=== PATIENT | male | born 1945 | race Caucasian/White ===

== ENCOUNTER 2017-09-24 15:05 | Emergency (ER) | payer SELFPAY ==
[2017-09-24 15:19] VITALS: BP 165/67; PULSE 56; RESP 20; TEMP 97.9; O2SAT 95
[2017-09-24] MEDS ORDERED: [UNRECOGNIZED DRUG - OTHER] (15:32)
--- NOTE | 2017-09-24 15:39 | PD ---
HPI Chief Complaint: Injury Time Seen by Provider: 15:28 Travel History International Travel<30 days: No Contact w/Intl Traveler<30days: No Traveled to known affect area: No History of Present Illness HPI 72-year-old male presents to the emergency department for evaluation after a slip and fall that occurred just prior to arrival. Patient states that he slipped and fell at [facility] just prior to arrival. He hit his right knee and has a laceration to the right anterior knee. Patient is not sure if he hit his head, but is unsure if he had a brief moment of LOC and believes that he may have hit his head. Patient denies neck pain or back pain. No chest pain or abdominal pain. No vomiting. He currently rates his pain 0/10. He has been able to ambulate since the fall. He is unsure when his last tetanus immunization was, believes it was longer than 5 years ago. Patient is on Plavix. No exacerbating or alleviating factors. Moderate severity. PFSH Social History Alcohol Use: No Tobacco Use: No Substance Use: No Allergies-Medications (Allergen,Severity, Reaction): Coded Allergies: No Known Allergies (Unverified , 09/24/17) Reported Meds & Prescriptions Reported Meds & Active Scripts Active Reported [17 medication] Review of Systems Except as stated in HPI: all other systems reviewed are Neg Physical Exam Narrative GENERAL: Well-nourished, well-developed elderly male patient, afebrile. SKIN: Focused skin assessment warm/dry. Patient has a 6 cm laceration to the right anterior knee. I am able to visualize the base of the wound. HEAD: Normocephalic. Atraumatic. EYES: No scleral icterus. No injection or drainage. NECK: Supple, trachea midline. No JVD or lymphadenopathy. CARDIOVASCULAR: Regular rate and rhythm without murmurs, gallops, or rubs. RESPIRATORY: Breath sounds equal bilaterally. No accessory muscle use. Lung sounds are clear to auscultation. GASTROINTESTINAL: Abdomen soft, non-tender, nondistended. MUSCULOSKELETAL: No cyanosis, or edema. No bony point tenderness of right knee. He is full flexion-extension. BACK: Nontender without obvious deformity. No CVA tenderness. No bony point tenderness. He has full rotation of the cervical spine without pain or stiffness. Data Data Last Documented VS Vital Signs Date Time Temp Pulse Resp B/P (MAP) Pulse Ox O2 Delivery O2 Flow Rate FiO2 09/24/17 15:19 97.9 56 20 165/67 (99) [address] Brain W/O Iv Contrast(Rout) (09/24/17 ) Knee, Complete (4vws) (09/24/17 ) Tetanus/Diphtheria Tox Adult (Tetanus/Di (09/24/17 15:45) Lidocai-Epi 1%-1:100,000 Inj (Xylocaine- (09/24/17 15:45) MDM Medical Decision Making Medical Screen Exam Complete: Yes Emergency Medical Condition: Yes Medical Record Reviewed: Yes Interpretation(s) Last Impressions Knee X-Ray 09/24/17 0000 Signed Impressions: CONCLUSION: 1. No acute fracture or joint dislocation. 2. Bipartite patella 3. Prominent PVD Head CT 09/24/17 0000 Signed Impressions: CONCLUSION: 1. No acute intracranial abnormalities seen. 2. Mild soft tissue swelling in the left frontal region. Differential Diagnosis Closed head injury versus intracranial hemorrhage versus laceration versus open fracture versus knee contusion versus the fracture Narrative Course 72-year-old male presents to the emergency department for evaluation after a slip and fall. He is on Plavix and is not sure if he hit his head. Therefore, CT of the brain will be completed to rule out any intracranial hemorrhage. X- ray of the right knee is ordered and pending. Patient gives verbal consent for laceration repair. He states that he is currently on antibiotics for a wound to his toe. He is trying to remember the name of the antibiotic at this time. CT of the brain shows no acute intracranial abnormality. x-ray of the right knee shows no acute fracture or dislocation. Laceration was repaired. Patient is on antibiotic, but is not sure which one. He will be discharged a prescription for Keflex. He is instructed to not take this if he is already on it. He verbalizes agreement. He is instructed on proper wound care. The patient was discharged in stable condition with instructions, including return instructions and follow up instructions. Procedures Procedure Narrative LACERATION LOCATION: Right anterior knee LENGTH: 6 cm NUMBER OF STITCHES/BILL: 1 horizontal mattress suture, 5 simple interrupted sutures REPAIR: The area of the laceration was prepped with Betadine and sterilely draped. The laceration was infiltrated with 1% lidocaine with epinephrine. The wound was copiously irrigated and explored without evidence of foreign body, tendon injury or neurovascular injury. The wound was closed using 3-0 Prolene. This was a single layer repair. A sterile dressing was applied. The patient was advised to keep the dressing clean and dry. Patient tolerated the procedure well. Diagnosis Primary Impression: Laceration of right knee Qualified Codes: S81.011A - Laceration without foreign body, right knee, initial encounter Additional Impression: Closed head injury Qualified Codes: S09.90XA - Unspecified injury of head, initial encounter Referrals: Primary Care Physician call for appointment Patient Instructions: Care For Your Stitches (ED), General Instructions, Laceration (ED) Additional Instructions: Take antibiotic as directed until gone. If you are already on this antibiotic, do not take my prescription, but continue the prescription you are on. Otherwise, continue your current antibiotic and your new prescription. Clean laceration twice daily with soap and water and apply [id number] antibiotic ointment. Keep clean and dry. No swimming or hot tubs until healed. Suture removal in 10-14 days. You may follow-up with your primary care physician return to the emergency department for this. Return to the emergency department for any acute abnormalities. Med/Other Pt SpecificInfo: Prescription(s) given Scripts Cephalexin (Keflex) 500 Mg Capsule 500 MG PO Q8H for Infection for 10 Days, #30 CAP 0 Refills Prov: Mily Richmond 09/24/17 Disposition: 01 DISCHARGE HOME Condition: Stable Mily Richmond September 24, 2017 15:39
[2017-09-24] MEDS ORDERED: LIDOCAINE 1%/EPINEPHrine 1:100,000 SOLN 20 ML VIAL INFIL ONE (15:45)
[2017-09-24] MEDS ORDERED: TETANUS/DIPHTHERIA TOXOID ADULT 0.5 ML VIAL IM ONE (15:45)
--- NOTE | 2017-09-24 16:35 | RADRPT ---
EXAM DATE: 09/24/2017 4:24 PM EDT AGE/SEX: 72 years / Male INDICATIONS: Right anterior knee laceration and pain. Patient fell today. CLINICAL DATA: This is the patient's initial encounter. Patient reports that signs and symptoms have been present for 1 day and indicates a pain score of 6/10. MEDICAL/SURGICAL HISTORY: None. None. COMPARISON: No prior [facility] exams available for comparison. FINDINGS: Bony structures are intact and in normal alignment. Joints are intact without dislocation or signifi cant arthropathy. 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 Osseous density is normal. No joint effus ion is demonstrated. There is prominent vascular calcifications in the soft tissues characteristic fo r PVD. There are surgical clips in the soft tissues.. CONCLUSION: 1. No acute fracture or joint dislocation. 2. Bipartite patella 3. Prominent PVD Electronically signed by: Chilango Holder MD 09/24/2017 4:34 PM EDT
--- NOTE | 2017-09-24 17:21 | RADRPT ---
EXAM DATE: 09/24/2017 5:18 PM EDT AGE/SEX: 72 years / Male INDICATIONS: Fall today CLINICAL DATA: This is the patient's initial encounter. Patient reports that signs and symptoms have been present for 1 day and indicates a pain score of 6/10. MEDICAL/SURGICAL HISTORY: None. None. RADIATION DOSE: 46.39 CTDI (mGy) COMPARISON: No prior [facility] exams available for comparison. TECHNIQUE: CT of the head without contrast. Using automated exposure control and adjustment of the mA and/or kV according to patient size, radiation dose was kept as low as reasonably achievable to ob tain optimal diagnostic quality images. FINDINGS: Cerebrum: The ventricles are normal for age. No evidence of midline shift, mass lesion, hemorrhage or acute infarction. No extraaxial fluid collections are seen. Posterior Fossa: The cerebellum and brainstem are intact. The 4th ventricle is midline. The cerebe llopontine angle is unremarkable. Extracranial: The visualized portion of the orbits is intact. There appears to be mild soft tissue s welling in the left frontal scalp region. Skull: The calvaria is intact. No evidence of skull fracture. CONCLUSION: 1. No acute intracranial abnormalities seen. 2. Mild soft tissue swelling in the left frontal region. Electronically signed by: Dameon Matthew MD 09/24/2017 5:20 PM EDT
[2017-09-24] MEDS ORDERED: CEPH-460 PO (17:45)
== END 2017-09-24 18:05 | disposition home or self-care (01) ==
LOC: NEPK 15:05
DX: S81.011A Laceration without foreign body, right knee, initial encounter (principal); S09.90XA Unspecified injury of head, initial encounter; W01.0XXA Fall on same level from slipping, tripping and stumbling without subsequent striking against object, initial encounter; Y92.512 Supermarket, store or market as the place of occurrence of the external cause; Z23 Encounter for immunization; Z79.02 Long term (current) use of antithrombotics/antiplatelets
CPT/HCPCS: 12002; 70450; 73564; 90471; 90714